=== PATIENT | female | born 1950 | race Caucasian/White ===

== ENCOUNTER → 2017-03-01 | Outpatient (CLI) | payer MEDICARE ==
--- NOTE | 2017-03-01 14:02 | US ---
History: Liver hemangioma. Complete upper abdominal ultrasound: The liver parenchyma is of increased echogenicity. In the liver dome, a complex 3.3 x 3.6 x 2.7 cm mass is partially shown. Centrally it appears to be of diminished echogenicity with an echogenic rim surrounding the lesion. Patient had a noncontrast CT of the abdomen from 2014 which demonstrates a similar appearing lesion when different modalities are compared. No additional liver lesion is identified. 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 Stability certainly is helpful although comparing the nodule with similar modality should be considered unless diagnosis has been made. The gallbladder is surgically absent. Common duct is normal at 3 to 4 mm. No intrahepatic ductal dilatation. The abdominal aorta is unremarkable with minimal scattered atheromatous change. The pancreas is visualized in limited fashion. IVC appears normal. The right kidney is 8.8 cm and left kidney 9.0 cm. No solid or cystic mass, echogenic region suggestive of stone or significant hydronephrosis. The spleen is normal and measures 9.6 cm. No free fluid in the upper abdomen. IMPRESSION: 1. 3.6 cm complex mass right liver dome appears grossly stable since a noncontrast CT from 11/2014 and compatible with an atypical hemangioma. Relative stability since last study should be fairly reassuring although imaging with CT with similar modality would be of benefit to confirm lack of interval change. 2. Mild fatty infiltration of the liver. Electronically signed by: Saranya Smith MD 03/01/2017 2:01 PM CDT Workstation: [id number]
== END | disposition home or self-care (01) ==
LOC: US 08:10
PROVIDERS: ATTEND General Practice
DX: D18.03 Hemangioma of intra-abdominal structures (principal)

== ENCOUNTER → 2017-05-29 | Outpatient (CLI) | payer MEDICARE | END | disposition home or self-care (01) | LOC: LAB.O 13:13 | PROVIDERS: ATTEND General Practice | DX: D64.9 Anemia, unspecified (principal); I95.9 Hypotension, unspecified ==

== ENCOUNTER → 2018-11-26 | Outpatient (CLI) | payer MEDICARE ==
--- NOTE | 2018-11-26 14:27 | CT ---
EXAM DESCRIPTION: Abdomen/Pelvis w/wo Contrast CLINICAL HISTORY: 68 years Female, ABD PAIN COMPARISON: Ultrasound of the abdomen dated 03/31/2017. TECHNIQUE: Contiguous 3 mm axial images were obtained from the lung bases to the level of the proximal femora before and after the administration of intravenous and oral contrast. Sagittal and coronal reconstructions were reviewed. FINDINGS: THORAX: The imaged lower thorax demonstrates no gross abnormality. LIVER: 3.6 x 3.4 cm hypodense lesion is identified in hepatic segment 7. This demonstrates peripheral enhancement. This remains indeterminate in etiology. GALLBLADDER: Surgically absent. PANCREAS: Appears normal with no cystic or solid lesions. SPLEEN: Normal ADRENAL GLANDS: Normal with no nodules or masses. KIDNEYS: Both kidneys enhance symmetrically with no hydronephrosis or nephrolithiasis or perinephric fluid collections. No focal masses are identified. The visualized ureters appear grossly unremarkable. STOMACH: The stomach is not well-distended limiting detailed evaluation. SMALL BOWEL: The small bowel loops demonstrate variable degrees of distention with no abnormal dilatation or other signs to suggest bowel obstruction. LARGE BOWEL: Mild constipation is identified. The appendix is not definitively visualized. No evidence of free intraperitoneal air or fluid. RETROPERITONEUM: The abdominal aorta is nonaneurysmal with mild atherosclerosis. The inferior vena cava is normal in size and caliber. No abnormally enlarged retroperitoneal lymph nodes are identified. URINARY BLADDER: The urinary bladder is not well-distended limiting detailed evaluation. The uterus and ovaries are surgically absent. ADDITIONAL FINDINGS: None. BONES: Mild degenerative changes are identified in the visualized bones.No evidence of osteophytic or osteoblastic lesions. IMPRESSION: 3.6 x 3.4 cm indeterminate hypodense lesion with peripheral enhancement is identified in hepatic segment 7. MRI of the abdomen is recommended for further evaluation if clinically concerned. Mild constipation. This exam was performed according to our departmental dose-optimization program, which includes automated exposure control, adjustment of the mA and/or kV according to patient size and/or use of iterative reconstruction technique. Electronically signed by: Sherrie Guillen MD 11/26/2018 2:24 PM CDT
== END ==
LOC: CT 08:57
PROVIDERS: ATTEND General Practice
DX: K59.00 Constipation, unspecified (principal); K76.9 Liver disease, unspecified

== ENCOUNTER 2020-07-01 08:49 | Emergency (ER) | payer MEDICARE ==
[2020-07-01] MEDS ORDERED: LUBIPROSTONE 24 MCG CAP PO ONE (09:07)
--- NOTE | 2020-07-01 09:11 | ED.PDOC ---
History of Present Illness - General Chief Complaint: GI Problem Time Seen by Provider: 07/01/20 08:56 Source: patient Exam Limitations: no limitations - History of Present Illness Initial Comments: The patient is a 70-year-old female presented emergency room secondary to constipation issues. The patient has had a lifetime issue with constipation. She was just started on MiraLAX yesterday evening by her primary care doctor. She apparently had an abdominal x-ray yesterday showing the constipation. She had a colonoscopy that she reports was normal 1 year ago. No bleeding. No real pain. Last bowel movement was about 7 days ago. She normally only goes to the bathroom about twice a week. No nausea or vomiting. No obstruction symptoms. No abdominal pain. No rebound or peritoneal signs. No medication changes otherwise recently. She has only had 1 dose of MiraLAX. Timing/Duration: 1 week Severity: moderate Improving Factors: nothing Worsening Factors: nothing Associated Symptoms: denies symptoms Allergies/Adverse Reactions: Allergies Codeine Allergy (Verified 07/06/14 13:22) Propoxyphene [From Darvon] Allergy (Verified 07/06/14 13:22) Home Medications: Ambulatory Orders Cefuroxime Axetil 500 mg PO BID 07/06/14 Clonazepam [Klonopin] 2 mg PO TID 07/06/14 Duloxetine HCl 60 mg PO DAILY 07/06/14 Risperidone 3 mg PO DAILY 07/06/14 Nitrofurantoin Monohydrate Mac [Macrobid] 100 mg PO BID #14 cap 03/23/15 Phenazopyridine HCl [Pyridium] 200 mg PO TID #6 tab 03/23/15 Review of Systems - Review of Systems Constitutional: States: no symptoms reported EENTM: States: no symptoms reported Respiratory: States: no symptoms reported Cardiology: States: no symptoms reported Gastrointestinal/Abdominal: States: see HPI Genitourinary: States: no symptoms reported Musculoskeletal: States: no symptoms reported Skin: States: no symptoms reported Neurological: States: no symptoms reported Endocrine: States: no symptoms reported All other Systems: No Change from Baseline Past Medical History (General) - Patient Medical History Hx Seizures: No Hx Stroke: No Hx Asthma: No Hx of COPD: Yes Hx Cardiac Disorders: No Hx Congestive Heart Failure: No Hx Hypertension: No Hx Diabetes: No Hx Cancer: No Hx Hepatitis C: No - Vaccination History Hx Influenza Vaccination: No Hx Pneumococcal Vaccination: No - Social History Hx Tobacco Use: No Hx Chewing Tobacco Use: No Hx Alcohol Use: No Hx Substance Use: No Hx Substance Use Treatment: No Hx Depression: No Hx Physical Abuse: No Hx Emotional Abuse: No Hx Suspected Abuse: No - Female History Patient : No Family Medical History - Family History Father Family History: Unknown Living Status: Hx Family Cancer: Yes Physical Exam - Physical Exam General Appearance: Alert, Comfortable, No apparent distress Eye Exam: bilateral normal Ears, Nose, Throat: hearing grossly normal, normal pharynx Respiratory: no respiratory distress, no accessory muscle use Cardiovascular/Chest: normal peripheral pulses, no edema Peripheral Pulses: radial,right: 2+, radial,left: 2+ Gastrointestinal/Abdominal: non tender - No rebound or peritoneal signs. No palpable masses. No guarding., soft Rectal Exam: deferred Back Exam: no CVA tenderness, no vertebral tenderness Extremity: normal range of motion, non-tender, normal inspection, no pedal edema, normal capillary refill Neurologic: billet heater II-XII nml as tested, alert, normal mood/affect, oriented x 3 Skin Exam: normal color Progress - Progress Progress: 07/01/20 09:11 The patient is a 70-year-old female presenting with the problem of acute on chronic constipation issues. The patient needs to increase fiber and fluid in her diet. The patient does need to continue taking the MiraLAX as prescribed by her primary care doctor. The patient has been given 1 dose of Amitiza here which will hopefully help. Additionally she can vegetable picker castor oil and take a dose of that this morning and this evening. She does need to limit her milk of magnesia intake to once or twice per month. She does need to increase her sunlight exposure and she also needs to increase her exercise level which may help stimulate the bowel. No obvious acute pathology otherwise has been determined, no obstructive symptoms. Last endoscopy was 1 year ago. ER warnings are given. Keep routine follow-up with primary care doctor. felix [email or web address] [phone] Departure - Departure Clinical Impression: Constipation Qualifiers: Constipation type: slow transit constipation Qualified Code(s): K59.01 - Slow transit constipation Disposition: Discharge to Home or Self Care Condition: Fair Departure Forms: ED Discharge - Pt. Copy, Patient Portal Self Enrollment Instructions: Constipation in Adults Diet: other - High-fiber Activity: increase activity as tolerated Referrals: Jc Shelby MD [Primary Care Provider] - 1-2 Weeks Home Medications: Ambulatory Orders Cefuroxime Axetil 500 mg PO BID 07/06/14 Clonazepam [Klonopin] 2 mg PO TID 07/06/14 Duloxetine HCl 60 mg PO DAILY 07/06/14 Risperidone 3 mg PO DAILY 07/06/14 Nitrofurantoin Monohydrate Mac [Macrobid] 100 mg PO BID #14 cap 03/23/15 Phenazopyridine HCl [Pyridium] 200 mg PO TID #6 tab 03/23/15 Additional Instructions: The patient is a 70-year-old female presenting with the problem of acute on chronic constipation issues. The patient needs to increase fiber and fluid in her diet. The patient does need to continue taking the MiraLAX as prescribed by her primary care doctor. The patient has been given 1 dose of Amitiza here which will hopefully help. Additionally she can vegetable picker castor oil and take a dose of that this morning and this evening. She does need to limit her milk of magnesia intake to once or twice per month. She does need to increase her sunlight exposure and she also needs to increase her exercise level which may help stimulate the bowel. No obvious acute pathology otherwise has been determined, no obstructive symptoms. Last endoscopy was 1 year ago. ER warnings are given. Keep routine follow-up with primary care doctor.
[2020-07-01 10:31] VITALS: BP 106/68; TEMP 97.8; O2SAT 98
== END 2020-07-01 10:27 | disposition home or self-care (01) ==
LOC: ER 08:49
DX: K59.01 Slow transit constipation (principal); J44.9 Chronic obstructive pulmonary disease, unspecified; Z88.5 Allergy status to narcotic agent; Z88.8 Allergy status to other drugs, medicaments and biological substances

== ENCOUNTER → 2020-07-08 | Outpatient (CLI) | payer MEDICARE ==
--- NOTE | 2020-07-08 10:16 | CT ---
EXAM DESCRIPTION: Abdomen/Pelvis w/wo Contrast CLINICAL HISTORY: LEFT LOWER QUADRANT PAIN COMPARISON: November 26, 2018 TECHNIQUE: Pre and postcontrast CT images of the abdomen and pelvis are obtained using standard imaging protocol. This exam was performed according to our departmental dose-optimization program, which includes automated exposure control, adjustment of the mA and/or kV according to patient size and/or use of iterative reconstruction technique . FINDINGS: Visualized lung bases show no acute findings. Ill-defined low-attenuation mass in the superior right lobe of the liver measures 4.2 cm stable from previous. Stable compared to prior studies from 2015 and described as atypical hemangioma. The spleen, pancreas, adrenal glands is unremarkable. Surgical clips from cholecystectomy are seen. Mild vascular calcifications. No nephrolithiasis. No ureteral calcification or obstruction. Urinary bladder is contracted and unremarkable. Uterus is not identified and presumed surgically absent. The appendix is not seen. Stomach is poorly distended and grossly unremarkable. No small bowel obstruction or bowel wall thickening. Occasional diverticuli of the colon are seen without associated inflammatory changes or fluid collections. No free intraperitoneal air or abnormal drainable fluid collections. No pathologically enlarged abdominal or retroperitoneal lymphadenopathy. Osseous structures show no aggressive bony lesions. Mild spondylitic changes of the spine are seen. IMPRESSION: No acute findings on CT of the abdomen and pelvis. Mild colon diverticulosis without CT evidence of diverticulitis. Stable hepatic mass described as atypical hemangioma on prior imaging studies. Urinary bladder is contracted and not well evaluated. Electronically signed by: Jose Angel Zapata MD 07/08/2020 10:14 AM CDT [id number]
== END ==
LOC: CT 07:55
PROVIDERS: ATTEND General Practice
DX: Z01.812 Encounter for preprocedural laboratory examination (principal); K57.30 Diverticulosis of large intestine without perforation or abscess without bleeding; D18.03 Hemangioma of intra-abdominal structures; N32.89 Other specified disorders of bladder

== ENCOUNTER → 2020-09-09 | Outpatient (CLI) | payer MEDICARE ==
--- NOTE | 2020-09-09 12:44 | MAM ---
EXAM DESCRIPTION: 3D Screening BILATERAL : Digital Mammography. CLINICAL HISTORY: 70 years Female SCREEN . No complaints. No family history breast cancer. Menarche age 13. Childbirth age 19. Menopause age 35. History of HRT use. Current status unknown.. Lifetime risk of developing breast cancer (Tyrer-Cuzick model)(%): 3.7. COMPARISON: Bilateral screening digital breast tomosynthesis April 2018. Diagnostic breast tomosynthesis and directed right breast ultrasound in the same month. TECHNIQUE: Bilateral CC and MLO projection full-field images, digital tomosynthesis mammographic technique. Bilateral digital 2-D full-field MLO images. CAD available for 2-D images. FINDINGS: The breast parenchymal density pattern is: Heterogeneously dense breast tissue, which may obscure small masses. Axillary nodes. Stable intramammary nodes. Microcalcifications and coarse calcifications. No skin thickening or nipple retraction No new focal, stellate mass or density, focal asymmetry , and no suspicious microcalcifications bilaterally. Stable mammograms compared to prior study. IMPRESSION: Benign exam. BIRAD CATEGORY: 2 BENIGN FINDINGS. RECOMMENDATIONS: FOLLOW UP: Routine digital bilateral mammographic screening, one year interval from August 2020. Written communication explaining the IMPRESSION and follow-up, will be mailed to the patient and referring health care provider. According to the [employer], yearly mammograms are recommended starting at age 40 and continuing as long as a woman is in good health. Any breast change noted on a breast self-exam should be reported promptly to the patient's healthcare provider. Breast MRI is recommended for women with an approximately 20-25% or greater lifetime risk of breast cancer, including women with a strong family history of breast or ovarian cancer and women who have been treated for Hodgkin's disease. A negative mammographic report should not delay tissue diagnosis in patients with significant clinical history or physical findings. Extremely dense breast tissue limits the sensitivity of digital mammography. Electronically signed by: Thad Duff MD 09/09/2020 12:43 PM [employer]
== END ==
LOC: MAMMO 07:48
PROVIDERS: ATTEND General Practice
DX: Z12.31 Encounter for screening mammogram for malignant neoplasm of breast (principal)